=== PATIENT | male | born 1975 | race Caucasian/White ===

== ENCOUNTER 2017-06-21 17:54 | Observation (INO) | payer OTHER ==
[2017-06-21 18:01] VITALS: BMI 39.0
--- NOTE | 2017-06-21 18:14 | PDOC ---
History of Present Illness - General History Source: Patient Exam Limitations: No Limitations <Tara Schaeffer - Last Filed: 06/21/17 23:11> <Israel Islas - Last Filed: 06/22/17 00:17> - General Chief Complaint: Chest Pain Stated Complaint: CHEST PAIN Time Seen by Provider: 06/21/17 18:14 - History of Present Illness Initial Comments: 06/21/17 18:43 The patient is a 41 year old male, with no significant past medical history, who presents to the emergency department complaining of shortness of breath for approximately 45 minutes. The patient reports associated chest discomfort with his SOB. He describes his chest pain as a pressure localized to the left chest wall. Patient rates his pain a 7/10. The patient reports associated numbness to the cheeks, neck, and arms bilaterally. He denies any paresthesias, diaphoresis , palpitations, or lower extremity edema. Patient denies any history of heart disease, any recent trauma, or heavy lifiting. He denies any recent travel or sick contacts. Allergies: NKDA Past Surgical History: None reported. Social History: Former smoker (Quit 4.5 years ago). Recreational marijuana use. No ETOH use. PCP: Dr. Osei([phone]) (Tara Schaeffer) Past History <Tara Schaeffer - Last Filed: 06/21/17 23:11> - Past Medical History Other medical history: NONE - Suicide/Smoking/Psychosocial Hx Smoking History: Never smoked Hx Alcohol Use: No Drug/Substance Use Hx: No Substance Use Type: None <Israel Islas - Last Filed: 06/22/17 00:17> - Past Medical History Allergies/Adverse Reactions: Allergies Allergy/AdvReac Type Severity Reaction Status Date / Time No Known Allergies Allergy Verified 06/21/17 19:14 Home Medications: Ambulatory Orders NK [No Known Home Medication] 06/21/17 Review of Systems - Review of Systems Able to Perform ROS?: Yes <Tara Schaeffer - Last Filed: 06/21/17 23:11> <Israel Islas - Last Filed: 06/22/17 00:17> - Review of Systems Comments:: 06/21/17 18:43 CONSTITUTIONAL: No fever, no chills, no fatigue EYES: No visual changes ENT: No ear pain, no sore throat CARDIOVASCULAR: Yes: chest pain. No palpitations RESPIRATORY: Yes: shortness of breath. No cough GI: No abdominal pain, no nausea, no vomiting, no constipation, no diarrhea GENITOURINARY: No dysuria, no frequency, no hematuria MUSCULOSKELETAL: No back pain, no joint pain, no myalgias SKIN: No rash NEURO: Yes: numbness to the cheeks, neck, and arms bilaterally. No headache (Tara Schaeffer) *Physical Exam <Tara Schaeffer - Last Filed: 06/21/17 23:11> <Israel Islas - Last Filed: 06/22/17 00:17> - Vital Signs Last Vital Signs Temp Pulse Resp BP Pulse Ox 98.7 F 74 16 111/74 99 06/21/17 18:45 06/22/17 00:12 06/22/17 00:12 06/22/17 00:12 06/22/17 00:12 - Physical Exam Comments: 06/21/17 18:46 CONSTITUTIONAL: Flushed. Well-appearing; well-nourished; in no apparent distress HEAD: Normocephalic; atraumatic EYES: PERRL; EOM intact ENMT: External appears normal; normal oropharynx NECK: Supple; non-tender; no cervical lymphadenopathy CARD: Tachycardic. Regular rhythm Normal S1, S2; no murmurs, rubs, or gallops RESP: Normal chest excursion with respiration; breath sounds clear and equal bilaterally; no wheezes, rhonchi, or rales ABD: Soft, non-distended; non-tender; no palpable organomegaly, no palpable hernias EXT: Normal ROM in all four extremities; non-tender to palpation; distal pulses intact SKIN: Warm, dry, no rash NEURO: No focal neurological deficiencies. (Tara Schaeffer) Heart Score/ECG Review <Tara Schaeffer - Last Filed: 06/21/17 23:11> <Israel Islas - Last Filed: 06/22/17 00:17> - ECG Intrepretation Comment:: 06/21/17 22:56 ECG 18:00 Vent Rate: 118 bpm IMPRESSION: Sinus tachycardia. Nonspecific ST abnormality. Repeat ECG 22:41 Vent Rate: 67 bpm IMPRESSION: Normal sinus rhythm. (Tara Schaeffer) ED Treatment Course - LABORATORY CBC & Chemistry Diagram: 06/21/17 18:25 06/21/17 18:25 <Tara Schaeffer - Last Filed: 06/21/17 23:11> - LABORATORY CBC & Chemistry Diagram: 06/21/17 18:25 06/21/17 18:25 <Israel Islas - Last Filed: 06/22/17 00:17> - ADDITIONAL ORDERS Additional order review: Laboratory Results 06/21/17 06/21/17 06/21/17 18:25 18:25 18:25 PT with INR 12.10 H INR 1.10 D-Dimer < 200 Sodium 137 Potassium 3.5 Chloride 101 Carbon Dioxide 20 L Anion Gap 16 BUN 18 Creatinine 0.8 Creat Clearance w eGFR > 60 Random Glucose 111 H Calcium 9.2 Total Bilirubin 0.7 AST 22 ALT 37 Alkaline Phosphatase 82 Creatine Kinase 149 Troponin I < 0.02 Total Protein 7.5 Albumin 4.1 06/21/17 18:25 RBC 5.11 MCV 84.5 MCHC 34.4 RDW 13.0 MPV 8.7 Neutrophils % 61.8 Lymphocytes % 30.0 Monocytes % 6.3 Eosinophils % 1.3 Basophils % 0.6 - RADIOLOGY Radiology Studies Ordered: Category Date Time Status ABDOMEN/PELVIS CTA W/WO CONTR [CT] Stat CT Scan 06/21/17 20:28 Completed CHEST CTA [CT] Stat CT Scan 06/21/17 18:42 Completed CHEST X-RAY PORTABLE* [RAD] Stat Radiology 06/21/17 18:23 Taken Radiograph Interpretation: 06/21/17 23:11 EXAM: CT Abdomen and Pelvis INTERPRETED BY: Dr. Lind REVIEWED BY: Dr. Islas IMPRESSION: No aortic dissection or aneurysm is identified involving the chest or abdomen. EXAM: CTA Chest INTERPRETED BY: Dr. Lind REVIEWED BY: Dr. Islas IMPRESSION: No aortic dissection or aneurysm is identified involving the chest or abdomen. (Tara Schaeffer) - Medications Given in the ED: ED Medications Discontinued Medications Generic Name Dose Route Start Last Admin Trade Name Freq PRN Reason Stop Dose Admin Labetalol HCl 20 mg 06/21/17 18:28 06/21/17 18:34 Normodyne Injection - IVPUSH 06/21/17 18:29 20 mg ONCE ONE Administration Metoprolol Tartrate 25 mg 06/21/17 23:58 06/22/17 00:07 Lopressor - PO 06/21/17 23:59 25 mg ONCE ONE Administration Medical Decision Making <Tara Schaeffer - Last Filed: 06/21/17 23:11> <Israel Islas - Last Filed: 06/22/17 00:17> - Medical Decision Making 06/21/17 23:16 41-year-old male with no previous medical history presented to the ER with severe chest pain and shortness of breath, facial flushing and bilateral facial and arm paresthesias. Patient was noted to be hypertensive at 155/122. EKG showed sinus tachycardia with inverted T waves in lead 3 and aVF; Labetalol-20 mg IV push bolus followed by labetalol drip was initiated. Chest x-ray revealed no evidence of widened mediastinum. D-dimer is noted to be negative. First set of cardiac enzymes was within normal limit. CTA of chest/abdomen/pelvis revealed no evidence of aortic dissection. On reevaluation, patient is asymptomatic;. Repeat EKG showed normal sinus rhythm at 67 with normalization of T wave in lead aVF. I suspect hypertensive urgency with ACS. We'll administer aspirin and will place in telemetry/for observation and serial cardiac enzymes. (Israel Islas) *DC/Admit/Observation/Transfer <Tara Schaeffer - Last Filed: 06/21/17 23:11> - Discharge Dispostion Admit: Yes <Israel Islas - Last Filed: 06/22/17 00:17> Diagnosis at time of Disposition: Acute coronary syndrome, Hypertensive urgency - Discharge Dispostion Condition at time of disposition: Fair - Referrals Referrals: Edis Osei v [Primary Care Provider] - - Attestations Scribe Attestion: 06/21/17 18:46 Documentation prepared by Tara Schaeffer, acting as anesthesiology medical doctor for Israel Islas MD. (Tara Schaeffer) Physician Attestion: 06/21/17 23:16 The documentation was prepared by the scribe under my direct supervision. I have reviewed the documentation which correctly represents the findings, medical decision-making and critical action taken by me. (Israel Islas)
[2017-06-21] MEDS ORDERED: LABETALOL HCL 5 MG/1 ML (100MG/20 ML VIAL) IVPUSH ONE (18:28)
[2017-06-21] MEDS ORDERED: LABETALOL HCL 5 MG/1 ML (200MG/40ML VIAL) IVPB ONE (18:29)
[2017-06-21] MEDS ORDERED: LABETALOL HCL INJECTION 1,000 MG in SODIUM CHLORIDE 800 ML IV SCH (18:30)
[2017-06-21 18:57] LABS: BASOPHIL 0.6 % (0-2.0); EOSINOPHIL 1.3 % (0-4.5); MCHC 34.4 g/dl (32.0-35.9); MEAN CELL VOLUME 84.5 fl (80-96); MEAN PLT VOLUME 8.7 fl (7.5-11.1); NEUTROPHILS 61.8 % (42.8-82.8); PLATELET COUNT 303 K/MM3 (134-434); WHITE BLOOD COUNT 16.1 K/mm3 (4.0-10.0)
[2017-06-21 19:24] LABS: INR 1.1 (0.82-1.09); PROTHROMBIN TIME (PATIENT) 12.1 SEC (9.98-11.88)
[2017-06-21 20:13] LABS: CREATININE 0.8 mg/dL (0.7-1.3)
[2017-06-21 20:14] LABS: ALBUMIN 4.1 g/dl (3.4-5.0); ANION GAP 16 (8-16); BILIRUBIN,TOTAL 0.7 mg/dL (0.2-1.0); CALCIUM 9.2 mg/dL (8.5-10.1); CO2 20 mmol/L (21-32); GLUCOSE,RANDOM 111 mg/dL (74-106); TOT PROT 7.5 g/dl (6.4-8.2)
[2017-06-21 20:15] LABS: ALK PHOS 82 U/L (45-117); CPK 149 IU/L (39-308); SGOT/AST 22 U/L (15-37); SGPT/ALT 37 U/L (12-78); TROPONIN I < 0.02 ng/ml (0.00-0.05)
[2017-06-21] MEDS ORDERED: METOPROLOL TARTRATE 25 MG TABLET (FP) PO ONE (23:58)
[2017-06-22] MEDS ORDERED: METOPROLOL TARTRATE 25 MG TABLET (FP) ONE (00:07)
--- NOTE | 2017-06-22 00:38 | HP ---
CHIEF COMPLAINT: " Dizziness and shortness of breath" PCP: Dr. Osei ([phone]) HISTORY OF PRESENT ILLNESS: Patient is a 41 year old male, with no significant past medical history, presented to the emergency department with the chief complaint of dizziness and shortness of breath for about an hour prior to arrival. As per the patient, he was at home cooking when he suddenly started feeling dizzy, blurring of vision but no LOC. It was associated with shortness of breath, palpitation, tingling and numbness of the b/l arms, face and neck. Denies headache, chest pain, cough, fever, chills, rigors, sweating, abdominal pain, nausea or vomiting. No h/o travel, sick contacts. Patient mentions that he hasn't slept this past week due to stress. Has personal problems and is difficult for him to cope with the situation and is very disturbed. No suicidal ideation. Feels tired and wants to sleep at this time. Bowel/Bladder habit normal. Sleep/Appetite normal. Patient says he follows his PCP yearly for a physical and was never diagnosed to have hypertension, diabetes or any other medical problems. As per ED physician, he placed a call to Dr. Osei regarding the EKG changes and he mentioned the EKG changes are all new. ER course was notable for: (1) Afebrile, BP 155/122 mmHg (2) sinus tachycardia with inverted T waves in lead 3 and aVF; Repeat EKG showed normal sinus rhythm at 67 with normalization of T wave in lead aVF. (3 CT of chest/abdomen/pelvis : Negative for aortic dissection (4) Labetalol-20 mg IV push bolus followed by labetalol drip was initiated. Recent Travel: None PAST MEDICAL HISTORY: None PAST SURGICAL HISTORY: Hernia repair Social History: Smoking: Former smoker, Quit 5 years ago, smoked 1/2 a pack for 10 years Alcohol: Occasional- 2 times a week, drinks 5-6 beers Drugs: Occasional Marijuana. Family History: None Allergies No Known Allergies Allergy (Verified 06/21/17 19:14) HOME MEDICATIONS: Home Medications Medication Instructions Recorded NK [No Known Home Medication] 06/21/17 REVIEW OF SYSTEMS CONSTITUTIONAL: Absent: fever, chills, diaphoresis, generalized weakness, malaise, loss of appetite, weight change HEENT: Absent: rhinorrhea, nasal congestion, throat pain, throat swelling, difficulty swallowing, mouth swelling, ear pain, eye pain, visual changes CARDIOVASCULAR: Present: Palpitations Absent: chest pain, syncope, irregular heart rate, lightheadedness, peripheral edema RESPIRATORY: Present: shortness of breath Absent: cough, dyspnea with exertion, orthopnea, wheezing, stridor, hemoptysis GASTROINTESTINAL: Absent: abdominal pain, abdominal distension, nausea, vomiting, diarrhea, constipation, melena, hematochezia GENITOURINARY: Absent: dysuria, frequency, urgency, hesitancy, hematuria, flank pain, genital pain MUSCULOSKELETAL: Absent: myalgia, arthralgia, joint swelling, back pain, neck pain SKIN: Absent: rash, itching, pallor HEMATOLOGIC/IMMUNOLOGIC: Absent: easy bleeding, easy bruising, lymphadenopathy, frequent infections ENDOCRINE: Absent: unexplained weight gain, unexplained weight loss, heat intolerance, cold intolerance NEUROLOGIC: Present: dizziness, weakness Absent: headache, focal weakness or paresthesias, unsteady gait, seizure, mental status changes, bladder or bowel incontinence PSYCHIATRIC: Absent: anxiety, depression, suicidal or homicidal ideation, hallucinations. PHYSICAL EXAMINATION Vital Signs - 24 hr 06/21/17 06/21/17 06/21/17 17:58 18:45 18:53 Temperature 98.2 F 98.5 F Pulse Rate 123 H Pulse Rate [ Apical] Pulse Rate [ 99 H Left Radial] Respiratory 20 16 Rate Blood Pressure 154/122 143/77 143/77 Blood Pressure 156/88 [Right Arm] O2 Sat by Pulse 99 100 Oximetry (%) 06/21/17 06/21/17 06/21/17 19:09 20:06 21:06 Temperature Pulse Rate Pulse Rate [ Apical] Pulse Rate [ 83 72 74 Left Radial] Respiratory 19 18 16 Rate Blood Pressure Blood Pressure 125/77 128/80 149/75 [Right Arm] O2 Sat by Pulse 100 Oximetry (%) 06/22/17 00:12 Temperature Pulse Rate Pulse Rate [ 74 Apical] Pulse Rate [ Left Radial] Respiratory 16 Rate Blood Pressure Blood Pressure 111/74 [Right Arm] O2 Sat by Pulse 99 Oximetry (%) GENERAL: Young male, lying comfortably in bed, Awake, alert, and fully oriented , in no acute distress. HEAD: Normal with no signs of trauma. EYES: Red eyes+, no itching or discharge, EOM intact, no pallor or icterus EARS, NOSE, THROAT: Ears normal. Moist mucous membranes. FACE: Flushed face extending to the neck. NECK: Supple. LUNGS: Breath sounds equal, clear to auscultation bilaterally. No wheezes, and no crackles. HEART: Regular rate and rhythm, normal S1 and S2 with soft sytolic murmur. ABDOMEN: Soft, nontender, not distended, normoactive bowel sounds, no guarding, no rebound, no masses. No hepatomegaly or splenomegaly. MUSCULOSKELETAL: Normal range of motion at all joints. No bony deformities or tenderness. No CVA tenderness. UPPER EXTREMITIES: 2+ pulses, warm, well-perfused. No cyanosis. No clubbing. No peripheral edema. LOWER EXTREMITIES: 2+ pulses, warm, well-perfused. No calf tenderness. No peripheral edema. NEUROLOGICAL: No facial droop, power 5/5 in all extremities; Cranial nerves II- XII intact. Normal speech. Gait not observed. PSYCHIATRIC: Cooperative. Good eye contact. Appropriate mood and affect. SKIN: Warm, dry, normal turgor, no rashes or lesions noted, normal capillary refill. Laboratory Results - last 24 hr 06/21/17 06/21/17 06/21/17 18:25 18:25 18:25 WBC 16.1 H RBC 5.11 Hgb 14.8 Hct 43.1 MCV 84.5 MCH 29.0 MCHC 34.4 RDW 13.0 Plt Count 303 MPV 8.7 Neutrophils % 61.8 Lymphocytes % 30.0 Monocytes % 6.3 Eosinophils % 1.3 Basophils % 0.6 PT with INR INR D-Dimer < 200 Sodium 137 Potassium 3.5 Chloride 101 Carbon Dioxide 20 L Anion Gap 16 BUN 18 Creatinine 0.8 Creat Clearance w eGFR > 60 Random Glucose 111 H Calcium 9.2 Total Bilirubin 0.7 AST 22 ALT 37 Alkaline Phosphatase 82 Creatine Kinase 149 Troponin I < 0.02 Total Protein 7.5 Albumin 4.1 06/21/17 18:25 WBC RBC Hgb Hct MCV MCH MCHC RDW Plt Count MPV Neutrophils % Lymphocytes % Monocytes % Eosinophils % Basophils % PT with INR 12.10 H INR 1.10 D-Dimer Sodium Potassium Chloride Carbon Dioxide Anion Gap BUN Creatinine Creat Clearance w eGFR Random Glucose Calcium Total Bilirubin AST ALT Alkaline Phosphatase Creatine Kinase Troponin I Total Protein Albumin ASSESSMENT/PLAN: Patient is a 41 year old male, with no significant past medical history, presented to the emergency department with the chief complaint of dizziness and shortness of breath for about an hour prior to arrival found to have high blood pressure. # Hypertensive Urgency Presented with dizziness, SOB, numbness, tingling in arms, face and neck On arrival, BP was 155/122 mmHg In the ED, Labetalol-20 mg IV push bolus followed by labetalol drip was initiated. Repeat BP was 111/74 and labetolol drip was stopped. Place in tele/Obs Continuous cardiac monitoring Frequent blood pressure checks Continue Lopressor 25mg Daily IV Lopressor PRN Would consider ophthalmology follow up as outpatient. Diet and exercise counseling Lipid panel and A1c ordered for am. # Leukocytosis likely reactive R/O UTI, UA is pending, Unlikely PNA-CTA negative for PNA Afebrile, low suspcion of infection, will repeat CBC tomorrow, monitor off antibiotics # New EKG changes EKG: sinus tachycardia with inverted T waves in lead 3 and aVF; Repeat EKG showed normal sinus rhythm at 67 with normalization of T wave in lead aVF. Will repeat EKG in am # FEN Not on any IV fluids, can tolerate PO Electrolytes to monitor closely Sodium controlled diet # Prophylaxis For DVT: Heparin 5000 sq For GI: Not indicated # Code Status: Full Code # Dispo: Placed in obs/tele. Duration of stay 1-2 days. Illness, Investigation and plan of care explained to the patient. He verbalized understanding. Case seen and discussed with Dr. Trinidad. Visit type - Emergency Visit Emergency Visit: Yes ED Registration Date: 06/22/17 Care time: The patient presented to the Emergency Department on the above date and was hospitalized for further evaluation of their emergent condition. - New Patient This patient is new to me today: Yes Date on this admission: 06/22/17 - Critical Care Critical Care patient: No
[2017-06-22] MEDS ORDERED: SODIUM CHLORIDE 1,000 ML IV SCH (00:45)
--- NOTE | 2017-06-22 00:53 | PN ---
Teaching Attending Note Name of Resident: Gena Juarez ATTENDING PHYSICIAN STATEMENT I saw and evaluated the patient. I reviewed the resident's note and discussed the case with the resident. I agree with the resident's findings and plan as documented. SUBJECTIVE: 41 year old male that presents c/o an episode of Chest pain , b/l shoulder pain and numbness, neck pain and dizziness that occured while at home today . Found to be tachycardic and hypertensive in the ED requiring initiation of labetalol drip . Symptoms resolved shortly after arrival to ED reports stress at home PMH NONE PSX NONE MEDS NONE OBJECTIVE: Vital Signs Temperature 98.7 F 06/21/17 18:45 Pulse Rate 74 06/22/17 00:12 Respiratory Rate 16 06/22/17 00:12 Blood Pressure 111/74 06/22/17 00:12 O2 Sat by Pulse Oximetry (%) 99 06/22/17 00:12 HEENT - scleral injection CVS S1 S2 WNL , no MRG heard ABD soft NT EXT no edema CBC, BMP 06/21/17 18:25 06/21/17 18:[address] depressions in inf lat ASSESSMENT AND PLAN: 1. CP SOB- likely related to tachycardia and HTN urgency - - telemetry - taper labetalol drip - ASA - obtain drug screen - IVF 2. Abnormal EKG - likely due to HTN urgency - repeat EKG - cardiology eval
[2017-06-22 00:56] LABS: URINE MARIJUANA THC POSITIVE ng/ml (CUTOFF=50)
[2017-06-22] MEDS ORDERED: METOPROLOL TARTRATE 5 MG/5 ML VIAL IVPUSH PRN (01:14)
[2017-06-22 02:30] LABS: URINE APPEARANCE CLEAR; URINE BILIRUBIN NEGATIVE (NEGATIVE); URINE BLOOD NEGATIVE (NEGATIVE); URINE COLOR YELLOW; URINE GLUCOSE (UA) NEGATIVE (NEGATIVE); URINE KETONE 1+ (NEGATIVE); URINE LEUK ESTERASE NEGATIVE (NEGATIVE); URINE NITRITE NEGATIVE (NEGATIVE); URINE PROTEIN NEGATIVE (NEGATIVE); URINE UROBILINOGEN NEGATIVE mg/dL (0.2-1.0)
[2017-06-22] MEDS ORDERED: HEPARIN NA (PORCINE) 5,000 UNITS/ML 1ML VIAL SQ SCH (06:00)
[2017-06-22] MEDS ORDERED: HEPARIN NA (PORCINE) 5,000 UNITS/ML 1ML VIAL ONE (06:51)
[2017-06-22 07:01] LABS: MCH 28.9 pg (25.7-33.7); MCHC 34.2 g/dl (32.0-35.9); MEAN CELL VOLUME 84.5 fl (80-96); MEAN PLT VOLUME 8.1 fl (7.5-11.1); PLATELET COUNT 256 K/MM3 (134-434); RDW 13.3 % (11.9-15.9); WHITE BLOOD COUNT 9.9 K/mm3 (4.0-10.0)
[2017-06-22 07:24] LABS: ALBUMIN 3.5 g/dl (3.4-5.0); ALK PHOS 68 U/L (45-117); ANION GAP 6 (8-16); BILIRUBIN,TOTAL 0.7 mg/dL (0.2-1.0); CALCIUM 8.6 mg/dL (8.5-10.1); CO2 25 mmol/L (21-32); CREATININE 0.6 mg/dL (0.7-1.3); GLUCOSE,RANDOM 117 mg/dL (74-106); SGOT/AST 16 U/L (15-37); SGPT/ALT 33 U/L (12-78); TOT PROT 6.7 g/dl (6.4-8.2)
[2017-06-22 07:29] LABS: CHOLESTEROL 176 mg/dL (50-200)
[2017-06-22 07:51] VITALS: BP 101/76; PULSE 95; TEMP 98.2
[2017-06-22] MEDS ORDERED: METOPROLOL TARTRATE 25 MG TABLET (FP) PO SCH (10:00)
[2017-06-22 10:18] LABS: TROPONIN I < 0.02 ng/ml (0.00-0.05)
--- NOTE | 2017-06-22 10:25 | EKG ---
Test Reason : Blood Pressure : / mmHG Vent. Rate : 067 BPM Atrial Rate : 067 BPM P-R Int : 162 ms QRS Dur : 110 ms QT Int : 420 ms P-R-T Axes : 058 044 022 degrees QTc Int : 443 ms NORMAL SINUS RHYTHM NORMAL ECG NO PREVIOUS ECGS AVAILABLE Confirmed by REED MCKEON MD ([id number]) on 06/22/2017 10:25:52 AM Referred By: Confirmed By:REED MCKEON MD
--- NOTE | 2017-06-22 14:35 | EKG ---
Test Reason : Blood Pressure : / mmHG Vent. Rate : 118 BPM Atrial Rate : 118 BPM P-R Int : 132 ms QRS Dur : 100 ms QT Int : 356 ms P-R-T Axes : 059 053 004 degrees QTc Int : 498 ms SINUS TACHYCARDIA NONSPECIFIC ST ABNORMALITY ABNORMAL ECG NO PREVIOUS ECGS AVAILABLE Confirmed by REED MCKEON MD ([id number]) on 06/22/2017 2:35:53 PM Referred By: Confirmed By:REED MCKEON MD
--- NOTE | 2017-06-22 15:18 | CON.CARD ---
Cardiology Consult (text) - Consultation Consultation Note: Consult was ordered, but now notified that patient has left AMA.
== END 2017-06-22 09:03 | disposition left against medical advice (07) ==
LOC: JER 17:54 → JERBED 06-22 00:17 → UNDOADMOB 06-22 00:32 → JERBED 06-22 00:32
PROVIDERS: ADMIT Internal Medicine; ATTEND Nurse Practitioner Acute Care
PROC: 3E033GC Introduction of Other Therapeutic Substance into Peripheral Vein, Percutaneous Approach (ICD-10-PCS; principal; 2017-06-22)
PROC: 3E013GC Introduction of Other Therapeutic Substance into Subcutaneous Tissue, Percutaneous Approach (ICD-10-PCS; 2017-06-22)
DX: I24.9 Acute ischemic heart disease, unspecified (principal); I16.0 Hypertensive urgency; R94.31 Abnormal electrocardiogram [ECG] [EKG]; D72.829 Elevated white blood cell count, unspecified
CPT/HCPCS: 36415; 71010-TC; 71275-TC; 74174-TC; 80053; 80061; 80307; 81003; 83036; 83721; 84484; 85025; 85027; 85379; 85610; 93005; 93010; 99285-25; G0378; J1644